=== PATIENT | female | born 1965 | race African-American/Black ===

== ENCOUNTER 2017-01-02 17:37 | Emergency (ER) | payer OTHER ==
[~2017-01-02 17:37] MED LIST: MOTRIN800 MG PO
[2017-01-02] MEDS ORDERED: INDOMETHACIN50 MG PO (17:55)
== END 2017-01-02 18:10 | disposition home or self-care (01) ==
LOC: ED 17:37
DX: M65.88 Other synovitis and tenosynovitis, other site (principal); Z91.040 Latex allergy status

== ENCOUNTER → 2020-07-27 | Outpatient (CLI) | payer OTHER ==
[~2020-07-27] MED LIST changes: +INDOMETHACIN50 MG PO
== END | disposition home or self-care (01) ==
LOC: COVID19 13:09
PROVIDERS: ATTEND Student in an Organized Health Care Education/Training Program
DX: U07.1 COVID-19 (principal)

== ENCOUNTER → 2021-03-03 | Outpatient (CLI) | payer OTHER | END | disposition home or self-care (01) | LOC: MAMMO 02-19 11:00 | PROVIDERS: ATTEND Nurse Practitioner Primary Care | DX: Z12.31 Encounter for screening mammogram for malignant neoplasm of breast (principal); N64.89 Other specified disorders of breast ==

== ENCOUNTER → 2021-05-18 | Outpatient (CLI) | payer OTHER | END | disposition home or self-care (01) | LOC: COVID19 16:47 | PROVIDERS: ATTEND Internal Medicine | DX: Z11.52 Encounter for screening for COVID-19 (principal) ==